=== PATIENT | female | born 1985 | race Caucasian/White ===

== ENCOUNTER 2017-12-20 16:30 | Emergency (ER) | payer OTHER ==
[~2017-12-20] VITALS: Ht 160 cm; Wt 92.6 kg
[2017-12-20 16:36] VITALS: BP 108/67
[2017-12-20 17:01] LABS: HCG UR SG 1.025 (1.003-1.030)
[2017-12-20 17:11] LABS: BASOPHILS # (AUTO) 0.06 x10^3/uL (0-0.1); BASOPHILS % (AUTO) 1 % (0-1); EOSINOPHILS # (AUTO) 0.52 x10^3/uL (0-0.4); EOSINOPHILS % (AUTO) 6 % (1-7); LYMPHOCYTES # (AUTO) 2.64 x10^3/uL (1-3.4); LYMPHOCYTES % (AUTO) 28 % (22-44); MD NO; MEAN CORPUSCULAR HEMOGLOBIN 30.5 pg (27.0-34.8); MEAN CORPUSCULAR HGB CONC 33.5 g/dL (32.4-35.8); MEAN CORPUSCULAR VOLUME 91.2 fL (80-100); MONOCYTES # (AUTO) 0.63 x10^3/uL (0.2-0.8); MONOCYTES % (AUTO) 7 % (2-9); NEUTROPHILS # (AUTO) 5.49 x10^3/uL (1.8-6.8); NEUTROPHILS % (AUTO) 59 % (42-75); PLATELET COUNT 375 x10^3/uL (130-400); RED BLOOD COUNT 4.87 x10^6/uL (3.82-5.3)
[2017-12-20 17:16] LABS: ALBUMIN 3.6 g/dL (3.4-5.0); ANION GAP 7 mmol/L (5-15); CALCIUM 8.6 mg/dL (8.5-10.1); CHLORIDE 111 mmol/L (98-107); CREATININE 0.96 mg/dL (0.55-1.02)
[2017-12-20 17:19] LABS: MICROSCOPIC INDICATED
[2017-12-20 17:22] LABS: CULTURE INDICATED? NO
[2017-12-20] MEDS ORDERED: METHOCARBAMOL 750 MG TABLET PO ONE (17:30)
[2017-12-20] MEDS ORDERED: KETOROLAC 30 MG/1 ML IM ONE (17:30)
[2017-12-20] MEDS ORDERED: METHOCARBAMOL 750 MG TABLET ONE (17:44)
[2017-12-20] MEDS ORDERED: KETOROLAC 30 MG/1 ML ONE (17:44)
== END 2017-12-20 19:02 | disposition home or self-care (01) ==
LOC: ED 17:33
DX: S29.012A Strain of muscle and tendon of back wall of thorax, initial encounter (principal); S39.012A Strain of muscle, fascia and tendon of lower back, initial encounter; X58.XXXA Exposure to other specified factors, initial encounter; Y93.89 Activity, other specified; Y99.8 Other external cause status; Y92.89 Other specified places as the place of occurrence of the external cause
CPT/HCPCS: 36415; 74176; 80048; 81001; 81025; 82040; 85025; 96372; 99285; J1885